=== PATIENT | male | born 1995 | race Caucasian/White ===

== ENCOUNTER 2016-11-02 15:22 | Inpatient (IN) | payer BC ==
[2016-11-02 16:32] LABS: Benzodiazepine Urine Screen None Detected (None Detect)
[2016-11-02 16:58] LABS: Hematocrit 44 % (42-52); Hemoglobin 14.6 g/dl (14.0-18.0); Mean Corpuscular HGB Conc 34 g/dl (31-36); Mean Corpuscular Hemoglobin 31 pg (27-31); Mean Corpuscular Volume 92 fL (80-94); Mean Platelet Volume 9 um3 (7.4-10.4); Red Blood Count 4.76 10^6/ul (4.0-5.4); Red Cell Distribution Width 14 % (10.5-15); White Blood Count 4.8 10^3/ul (3.5-10.8)
[2016-11-02 17:09] LABS: ALT 9 U/L (7-52); AST 22 U/L (13-39); Albumin 4.7 g/dL (3.2-5.2); Alkaline Phosphatase 77 U/L (34-104); Anion Gap 6 mmol/L (2-11); BUN/Creatinine Ratio 10.4 (8-20); Blood Urea Nitrogen 11 mg/dL (6-24); CO2 Carbon Dioxide 28 mmol/L (22-32); Calcium 9.7 mg/dL (8.6-10.3); Chloride 103 mmol/L (101-111); EGFR African American 114.5 (>60); EGFR Non-African American 89.1 (>60); Globulin 2.7 g/dL (2-4); Glucose 100 mg/dL (70-100); Potassium 3.9 mmol/L (3.5-5.0); Sodium 137 mmol/L (133-145); Total Protein 7.4 g/dL (6.4-8.9)
[2016-11-02 17:13] LABS: Acetaminophen < 15 mcg/mL; Alcohol < 10 mg/dL (<10); Salicylate < 2.50 mg/dL (<30)
[2016-11-02 17:23] LABS: TSH (Thyroid Stimulating Horm) 1.44 mcIU/mL (0.34-5.60)
--- NOTE | 2016-11-03 07:45 | ED ---
Spring Eaton Alfonso, scribed for Jose Coats MD on 11/02/16 at 1559 . Psychiatric Complaint - HPI Summary HPI Summary: This patient is a 21 year old M brought in by police to [facility] with a chief complaint of depression since one week ago. He states I wasnt feeling it anymore and he was set off today because of people at school. The patient rates the pain 0/10 in severity. Symptoms aggravated by nothing. Symptoms alleviated by nothing. Patient reports self-harm (burning and cutting himself), SI with a plan (everyday but I cannot tell you the plan.), insomnia (4 hours of sleep a night), loss of appetite, and weight loss (15 lb). He has a history of suicide attempts involving a hanging attempt, overdosing, and trying to jump off a building. Marijuana abuse. PMHx includes depression (7 years). - History Of Current Complaint Chief Complaint: EDMentalHealth Time Seen by Provider: 11/02/16 15:45 Hx Obtained From: Patient Onset/Duration: Sudden Onset, Lasting Weeks - 1, Still Present Timing: Constant Character: Depressed Aggravating Factor(s): Nothing Alleviating Factor(s): Nothing Associated Signs And Symptoms: Positive: Sleep Disturbance, Appetite Change Related History: Positive For: Prior Psychiatric Issues - depression Has Suicidal: Reports: Thoughts, With A Plan, Has Prior Attempt(s) Ingestion History: Type/Name Of Drug - Marijuana - Allergies/Home Medications Allergies/Adverse Reactions: Allergies Allergy/AdvReac Type Severity Reaction Status Date / Time No Known Allergies Allergy Verified 11/02/16 15:42 PMH/Surg Hx/FS Hx/Imm Hx Opthamlomology History: Denies: Hx Legally Blind EENT History: Denies: Hx Deafness Psychiatric History: Reports: Hx Depression Infectious Disease History: No Infectious Disease History: Denies: Traveled Outside the [place] in Last 30 Days - Family History Known Family History: Positive: Other - SI, depression Negative: Cardiac Disease, Hypertension, Diabetes - Social History Occupation: Student Alcohol Use: Rare Hx Substance Use: Yes Substance Use Type: Reports: Marijuana Hx Tobacco Use: Yes Smoking Status (MU): Light Every Day Tobacco Smoker Review of Systems Negative: Fever Positive: Other - loss of appetite, and weight loss (15 lb). Neurological: Other - SI with a plan, self harm, insomnia Positive: Depressed All Other Systems Reviewed And Are Negative: Yes Physical Exam - Summary Physical Exam Summary: VITAL SIGNS: Reviewed. GENERAL: Patient is a well-developed and nourished male who is lying comfortable in the stretcher. Patient is not in any acute respiratory distress. HEAD AND FACE: No signs of trauma. No ecchymosis, hematomas or skull depressions. No sinus tenderness. EYES: PERRLA, EOMI x 2, No injected conjunctiva, no nystagmus. EARS: Hearing grossly intact. Ear canals and tympanic membranes are within normal limits. MOUTH: Oropharynx within normal limits. NECK: Supple, trachea is midline, no adenopathy, no JVD, no carotid bruit, no c- spine tenderness, neck with full ROM. CHEST: Symmetric, no tenderness at palpation LUNGS: Clear to auscultation bilaterally. No wheezing or crackles. CVS: Regular rate and rhythm, S1 and S2 present, no murmurs or gallops appreciated. ABDOMEN: Soft, non-tender. No signs of distention. No rebound no guarding, and no masses palpated. Bowel sounds are normal. EXTREMITIES: FROM in all major joints, no edema, no cyanosis or clubbing. NEURO: Alert and oriented x 3. No acute neurological deficits. Speech is normal and follows commands. SKIN: Dry and warm PSYCH: Flat affect. Sad. Triage Information Reviewed: Yes Vital Signs On Initial Exam: Initial Vitals Temp Pulse Resp BP Pulse Ox 99.1 F 66 16 131/80 99 11/02/16 15:36 11/02/16 15:36 11/02/16 15:36 11/02/16 15:36 11/02/16 15:36 Vital Signs Reviewed: Yes Diagnostics - Vital Signs Vital Signs Temp Pulse Resp BP Pulse Ox 11/02/16 15:36 99.1 F 66 16 131/80 99 - Laboratory Result Diagrams: 11/02/16 16:28 11/02/16 16:28 Lab Statement: Any lab studies that have been ordered have been reviewed, and results considered in the medical decision making process. Course/Dx - Course Assessment/Plan: This patient is a 21 year old M brought in by police to [facility] with a chief complaint of depression since one week ago. He states I wasnt feeling it anymore and he was set off today because of people at school. The patient rates the pain 0/10 in severity. Symptoms aggravated by nothing. Symptoms alleviated by nothing. Patient reports self-harm (burning and cutting himself), SI with a plan (everyday but I cannot tell you the plan.), insomnia (4 hours of sleep a night), loss of appetite, and weight loss (15 lb). He has a history of suicide attempts involving a hanging attempt, overdosing, and trying to jump off a building. Marijuana abuse. PMHx includes depression (7 years). Test results with no significant abnormalities. Therefore, the patient is medically cleared at 1628. He is currently awaiting his MHE. Patient is signed out at shift change, pending disposition, awaiting MHE. The patient is hemodynamically stable, alert and oriented x3. - Differential Dx/Clinical Impression Provider Diagnosis: Depression, Suicidal ideation Discharge - Discharge Plan Condition: Stable Disposition: OTHER Discharge Disposition Comment: Patient is signed out at shift change, pending disposition, awaiting MHE. Referrals: [facility] [Primary Care Provider] - The documentation as recorded by the Spring luna Alfonso accurately reflects the service I personally performed and the decisions made by me, Jose Coats MD.
[2016-11-03] MEDS ORDERED: LORazepam TAB(*) 1 MG PO ONE (10:57)
[2016-11-03] MEDS ORDERED: Nicotine Inhaler* 10 MG AMP ONE (11:50)
[2016-11-03] MEDS ORDERED: Mouth Piece, Nicotine* 1 EACH CARTRIDGE ONE ×2 (11:50→18:47)
--- NOTE | 2016-11-03 12:48 | PN ---
ED Flex Patient Progress Note Subjective: This is a 21 year-old M who is pending transfer to another psychiatric facility secondary to active SI w/ plans . Pt offers no complaints at this time. Objective: Vitals: Most recent vital signs documented below. General NAD, Alert and oriented x3. Heart: S1/S2, RRR Lungs: CTA Ab: soft, NTTP Assessment: SI w/ plan Plan: Ativan ordered earlier for pt as he was physical agitated and actively pursuing ways to harm himself. Reports feeling "floaty" since - otherwise, same. He has a 1:1 and appears and reports being comfortable at this time. Pending psychiatric transfer. Will follow up daily until transfer. Vital Signs Temp Pulse Resp BP Pulse Ox 99.1 F 66 22 131/80 99 11/02/16 15:36 11/02/16 15:36 11/03/16 11:01 11/02/16 15:36 11/02/16 15:36 Lab Results - Entire Visit 11/02/16 11/02/16 11/02/16 16:28 16:28 16:10 WBC 4.8 RBC 4.76 Hgb 14.6 Hct 44 MCV 92 MCH 31 MCHC 34 RDW 14 Plt Count 240 MPV 9 Neut % (Auto) 70.4 Lymph % (Auto) 22.6 L Ogle % (Auto) 5.6 Eos % (Auto) 0.8 Baso % (Auto) 0.6 Absolute Neuts (auto) 3.4 Absolute Lymphs (auto) 1.1 Absolute Monos (auto) 0.3 Absolute Eos (auto) 0 Absolute Basos (auto) 0 Absolute Nucleated RBC 0 Nucleated RBC % 0 Sodium 137 Potassium 3.9 Chloride 103 Carbon Dioxide 28 Anion Gap 6 BUN 11 Creatinine 1.06 Est GFR ( Amer) 114.5 Est GFR (Non-Af Amer) 89.1 BUN/Creatinine Ratio 10.4 Glucose 100 Calcium 9.7 Total Bilirubin 0.80 AST 22 ALT 9 Alkaline Phosphatase 77 Total Protein 7.4 Albumin 4.7 Globulin 2.7 Albumin/Globulin Ratio 1.7 TSH 1.44 Salicylates < 2.50 Urine Opiates Screen None detected Acetaminophen < 15 Ur Barbiturates Screen None detected Ur Phencyclidine Scrn None detected Ur Amphetamines Screen Presumptive positive H U Benzodiazepines Scrn None detected Urine Cocaine Screen None detected U Cannabinoids Screen Presumptive positive H Serum Alcohol < 10
[2016-11-03] MEDS ORDERED: Acetaminophen TAB* 325 MG PO PRN (15:47)
[2016-11-03] MEDS ORDERED: Nicotine GUM* 2 MG PO PRN (15:47)
[2016-11-03] MEDS ORDERED: Al Hydrox/Mg Hydrox/Simet LIQ* 30 ML UDC PO PRN (15:47)
[2016-11-03] MEDS ORDERED: Haloperidol TAB* 5 MG PO PRN (15:48)
[2016-11-03] MEDS ORDERED: hydrOXYzine HCL TAB* 50 MG PO PRN (15:49)
[2016-11-03] MEDS: Nicotine Inhaler* 10 MG AMP INH PRN (18:48)
[2016-11-04] MEDS: Citalopram TAB* 40 MG PO SCH ×2 (11:07→11:08)
--- NOTE | 2016-11-04 12:24 | HP ---
H&P (Free Text) History and Physical: HPI: ---- Patient is a 21yo male with PPHx significant for MDD adnd ADHD. Patient presents to the [facility] ED, brought in by police for psych eval after patient called his therapist back home in [place] reporting worsening depression and SI. Patient attempted to hang himself twice since presentation. He attempted in the ED and on the unit last night. Patient reports worsening depressive symptoms and anxiety since starting at [facility]. Patient has transferred from [place] where he did two years at a [employer]. Patientn reports stress of not knowing anyone and recently feeling like his peers are saying things about him behind his back. Patient reports he has not heard anyone speak negatively of him but he feels he is being accused of being a racist and being sexist. Patient reports his family and other supports are in [place] where he was raised. Patient reports poor sleep, decreased energy and motivation to do well in classes. Patient reports feelings of hopelessness and helplessness. Patient reports no hx of physical, sexual or emotional abuse in his home. He does report being bullied for much of his HS years. Patient denies alcohol or drugs played a role in his depression or SI. He reports last seeing his psychiatrist and therapist in 2016. He reports he has not sought MH here in [place] yet. Patient currently endorses ongoing SI. He denies HI and AH/VH. He reports no symptoms of psychosis nor were any elicited on interview. Past Psych Hx: Inpt - This is patient's 1st Outpt - Last seen by psychiatrist in [place] Psychotropic med hx - Ritalin, Adderral, Bupropion, Celexa, and Trintellix all with little benefit. Suicide attempt Hx / SIB Hx: Patient reports 3 prior suicide attempts, his last in 01/2017 Trauma Hx: Patient denies hx of physical, emotional, and sexual abuse in his home. Patient does report being bullied throughout elementary and HS. Substance Hx: Patient denies hx of alcohol abuse. Patient reports daily use of cannabis, he smokes about a bowl per day. He smokes only in the evenings. Patient denies hx of use of other illicit substances. Medical Hx: NONE Allergies: --------- NKDA Family Hx: Patient reports depression in both sides of the family. He is not aware of any family with THERESA issues. Patient reports he has no knowledge of any family members completing suicide. Social Hx: --------- -Born and raised in [place] -Raised by mom and dad -1 sibling and older brother, they are not close -Patient reports completing 2 yrs at a [employer] in [place] prior to his transfer to [facility]. -Patient denies firearms in his dorm -Patient denies access to firearms at home -Patient reports he does have stockpiles of old Rx pills in his dorm room PHYSICAL EXAM: GEN - in NAD, looks stated age HEENT - NC/AT, EOEMI, no lesions or discharge noted, conjunctivae clear NECK - supple, no JVD, no LAD, CARDIAC - S1/S2, no discernable murmurs ABD - (+) BS x 4 quad, non-tender EXT - no edema, no lesions MUSCULOSKEL - 5/5 muscle strength in all extremities SKIN - intact, no lesions NEURO - CN 2-12, steady gait LABS: ----- Laboratory Tests 11/02/16 11/02/16 11/02/16 16:10 16:28 16:28 WBC 4.8 RBC 4.76 Hgb 14.6 Hct 44 MCV 92 MCH 31 MCHC 34 RDW 14 Plt Count 240 MPV 9 Neut % (Auto) 70.4 Lymph % (Auto) 22.6 L [place] % (Auto) 5.6 Eos % (Auto) 0.8 Baso % (Auto) 0.6 Absolute Neuts (auto) 3.4 Absolute Lymphs (auto) 1.1 Absolute Monos (auto) 0.3 Absolute Eos (auto) 0 Absolute Basos (auto) 0 Absolute Nucleated RBC 0 Nucleated RBC % 0 Sodium 137 Potassium 3.9 Chloride 103 Carbon Dioxide 28 Anion Gap 6 BUN 11 Creatinine 1.06 Est GFR ( Amer) 114.5 Est GFR (Non-Af Amer) 89.1 BUN/Creatinine Ratio 10.4 Glucose 100 Calcium 9.7 Total Bilirubin 0.80 AST 22 ALT 9 Alkaline Phosphatase 77 Total Protein 7.4 Albumin 4.7 Globulin 2.7 Albumin/Globulin Ratio 1.7 TSH 1.44 Salicylates < 2.50 Urine Opiates Screen None detected Acetaminophen < 15 Ur Barbiturates Screen None detected Ur Phencyclidine Scrn None detected Ur Amphetamines Screen Presumptive positive H U Benzodiazepines Scrn None detected Urine Cocaine Screen None detected U Cannabinoids Screen Presumptive positive H Serum Alcohol < 10 MSE: ----- Appearance - thin build, male, in paper scrubs, on 1:1, fair hygeine, in NAD Behavior - calm, cooperative Speech - RVR, prosody wnl Eye Contact - good Mood - "depressed" Affect - depressed TP - linear and GD TC - thought of hopelessness Perception - no signs of psychosis noted or reported Orientation - A&Ox3 Cognition - intact Insight - poor Judgement - poor SI / HI SI present on admission, currently denies both ASSESSMENT: 1. MDD, R, S w/o PFs 2. Social Anxiety d/o 3. ADHD PLAN: ------ 1. Continue admission to [facility] for safety and symptom mx. 2. Will D/C Celexa due to patient reported hx of it's ineffectiveness. 3. Will start Effexor 150mg po daily for depressive symptoms and anxiety. 4. Collateral information from family and outpt providers. 5. Patient to participate in milieu activities and groups.
[2016-11-04] MEDS: Nicotine Inhaler* 10 MG AMP INH PRN ×2 (13:08→20:41)
[2016-11-05] MEDS: Venlafaxine EXT RELEASE CAP* 75 MG PO SCH (08:28)
[2016-11-05] MEDS: Nicotine Inhaler* 10 MG AMP INH PRN ×2 (08:30→18:08)
--- NOTE | 2016-11-05 13:42 | PN ---
Subjective - Subjective Service Type: 29352 Hosp care 15 min low complexity Subjective: Patient visible in the milieu, social with select peers. Patient noted to be up exercising in the milieu today. On interview, patient is noted to be more engaged in the conversation. Eye contact is good today. TP is linear and TC is his re-commitment to prioritizing his MH care. Patient educated on the importance of med compliance as he has a genetic predisposition to become anxious and paranoid when extremely stressed. Patient acknowledged understanding. Patient has been med compliant and denies med s/e's. Patient amenable to restart of Abilify for paranoia and mood stabilization as he has seen benefit on the symptoms from Abilify trial in the past. Patient denies SI/HI and AH/VH. He denies paranoia on the unit. He reports fair sleep and appetite. Objective - Appearance Appearance: Well Developed/Nourished Dysmorphic Features: No Hygiene: Normal Grooming: Well Kept - Behavior Psychomotor Activities: Normal - Attitude and Relatedness Attitude and Relatedness: Cooperative Eye Contact: Fair - Speech Quality: Unpressured Latencies: Normal Quantity: Appropriate - Mood Patient's Decription of Mood: depressed - Affect Observed Affect: Depressed Affect Consistent with: Dysphoria - Thought Process Patient's Thought Process: Coherent Thought Content: Yes Paranoid Ideation, No Passive Wish, No Suicidal Planning, No Homicidal Ideation - Sensorium Experiencing Hallucinations: No, Sensorium is Clear Type of Hallucinations: Visual: No, Auditory: No, Command: No - Level of Consciousness Level of Consciousness: Alert Orientation: Yes Intact, Yes Orientated to Time, Yes Orientated to Place, Yes Orientated to Person - Impulse Control Impulse Control: Intact - Insight and Judgement Insight and Judgement: Fair - Group Participation Particating in Group Activities: Yes - Medication Management Medication Management Adherence: Yes Assessment - Assessment Merits Inpatient Hospitalization: For Immediate Safety, For Stabilization Inpatient DSM-IV Dx: ASSESSMENT: . 1. MDD, R, S w/ PFs(paranoia ) vs Bipolar depression w/PFs(paranoia). 2. ADHD Plan - Plan Treatment Plan: Name: KELLI HENRY Birthdate: 1995 [id number] PLAN: ------ 1. Continue admission to [facility] for safety and symptom mx. 2. Will D/C Celexa due to patient reported hx of it's ineffectiveness. 3. Continue Effexor 150mg po daily for depressive symptoms and anxiety. 4. Collateral information obtained from patient's psychiatrist,Dr. Ruddy Sheldon#[phone], patient has hx of paranoia. He has family hx of Bipolar 2 depression and his paternal GF committed suicide. 5. Will re-start Abilify at 10mg po qhs for PFs(paranoia) and mood stabilization / impulsivity. Plan to initiate Abilify Maintena prior to discharge. 6. Obtain collateral information from family(mom). 7. Patient to participate in milieu activities and groups. Medications: Current Medications Acetaminophen (Tylenol Tab*) 650 mg PO Q4H PRN PRN Reason: for pain; or Temp >101 F Al Hydrox/Mg Hydrox/Simethicone (Maalox Plus*) 30 ml PO Q4H PRN PRN Reason: INDIGESTION Haloperidol (Haldol Tab*) 5 mg PO Q6H PRN PRN Reason: AGITATION/ANXIETY/INSOMNIA Hydroxyzine HCl (Atarax Tab*) 50 mg PO Q6H PRN PRN Reason: AGITATION/ANXIETY/INSOMNIA Nicotine (Nicotine Inhaler*) 10 mg INH Q2H PRN PRN Reason: CRAVING Last Admin: 11/05/16 08:30 Dose: 10 mg Nicotine Polacrilex (Nicotine Gum*) 2 mg PO Q2H PRN PRN Reason: CRAVING Venlafaxine HCl (Effexor Xr Cap*) 150 mg PO DAILY [facility] Last Admin: 11/05/16 08:28 Dose: 150 mg - Discharge Plan Discharge Plan: Outpatient Follow Up Outpatient Program: [facility]
[2016-11-05] MEDS: ARIPiprazole TAB* 5 MG PO SCH (20:34)
[2016-11-06] MEDS: Venlafaxine EXT RELEASE CAP* 75 MG PO SCH (08:03)
--- NOTE | 2016-11-06 10:11 | PN ---
Subjective - Subjective Service Type: 38580 Hosp care 15 min low complexity Subjective: Patient visible in the milieu, social with peers. He was playing cards with multiple peers on my approach. Patient is more full in affect and even more engaged today in conversation. He reports no noticeable s/e's on last night's first dose of Abilify. Patient TP is linear and TC is focused on returning to school this semester. He reports his mother is on the way from [place]. Patient has been med compliant and denies med s/e's. Patient reporting improved mood. Patient denies SI/HI and AH/VH. He denies paranoia on the unit. He reports fair sleep and appetite. Objective - Appearance Appearance: Well Developed/Nourished Dysmorphic Features: No Hygiene: Normal Grooming: Fairly Well Kept - Behavior Psychomotor Activities: Normal Exhibits Abnormal Movement: No - Attitude and Relatedness Attitude and Relatedness: Cooperative Eye Contact: Fair - Speech Quality: Unpressured Latencies: Normal Quantity: Appropriate - Mood Patient's Decription of Mood: "Okay" - Affect Observed Affect: Fair Affect Consistent with: Euthymia - Thought Process Patient's Thought Process: Coherent Thought Content: No Passive Wish, No Suicidal Planning, No Homicidal Ideation, No Paranoid Ideation - Sensorium Experiencing Hallucinations: No, Sensorium is Clear Type of Hallucinations: Visual: No, Auditory: No, Command: No - Level of Consciousness Level of Consciousness: Alert Orientation: Yes Intact, Yes Orientated to Time, Yes Orientated to Place, Yes Orientated to Person - Impulse Control Impulse Control: Intact - Insight and Judgement Insight and Judgement: Fair - Group Participation Particating in Group Activities: Yes - Medication Management Medication Management Adherence: Yes Assessment - Assessment Merits Inpatient Hospitalization: For Immediate Safety, For Stabilization Inpatient DSM-IV Dx: ASSESSMENT: . 1. MDD, R, S w/ PFs(paranoia ) vs Bipolar depression w/PFs(paranoia). 2. ADHD Plan - Plan Treatment Plan: Name: KELLI HENRY Birthdate: 1995 [id number] PLAN: ------ 1. Continue admission to [facility] for safety and symptom mx. 2. Will D/C Celexa due to patient reported hx of it's ineffectiveness. 3. Continue Effexor 150mg po daily for depressive symptoms and anxiety. 4. Collateral information obtained from patient's psychiatrist,Dr. Ruddy Sheldon#[phone], patient has hx of paranoia. He has family hx of Bipolar 2 depression and his paternal GF committed suicide. 5. Will re-start Abilify at 10mg po qhs for PFs(paranoia) and mood stabilization / impulsivity. Plan to initiate Abilify Maintena prior to discharge. 6. Obtain collateral information from family(mom). 7. Patient to participate in milieu activities and groups. Medications: Current Medications Acetaminophen (Tylenol Tab*) 650 mg PO Q4H PRN PRN Reason: for pain; or Temp >101 F Al Hydrox/Mg Hydrox/Simethicone (Maalox Plus*) 30 ml PO Q4H PRN PRN Reason: INDIGESTION Aripiprazole (Abilify Tab*) 10 mg PO BEDTIME [facility] Last Admin: 11/05/16 20:34 Dose: 10 mg Haloperidol (Haldol Tab*) 5 mg PO Q6H PRN PRN Reason: AGITATION/ANXIETY/INSOMNIA Hydroxyzine HCl (Atarax Tab*) 50 mg PO Q6H PRN PRN Reason: AGITATION/ANXIETY/INSOMNIA Nicotine (Nicotine Inhaler*) 10 mg INH Q2H PRN PRN Reason: CRAVING Last Admin: 11/05/16 18:08 Dose: 10 mg Nicotine Polacrilex (Nicotine Gum*) 2 mg PO Q2H PRN PRN Reason: CRAVING Venlafaxine HCl (Effexor Xr Cap*) 150 mg PO DAILY [facility] Last Admin: 11/06/16 08:03 Dose: 150 mg
[2016-11-06] MEDS: Nicotine Inhaler* 10 MG AMP INH PRN ×2 (15:23→20:51)
[2016-11-06] MEDS: ARIPiprazole TAB* 5 MG PO SCH (20:17)
[2016-11-07] MEDS: Venlafaxine EXT RELEASE CAP* 75 MG PO SCH (08:26)
--- NOTE | 2016-11-07 13:19 | PN ---
Subjective - Subjective Service Type: 63650 Hosp care 15 min low complexity Subjective: Patient visible in the milieu, social with peers. He was noted to be more depressed in affect and manner today. Patient is med compliant. He reports new constipation x 2 days. He denies other med s/e's. Patient reports concern he is missing course work and concern that he will be hospitalized for months. Mother is on the way from [place]. Per conversation with mother. Patient will likely be asked to take a semester medical leave. She is coming to be with him if IC administration makes that decision. Patient denies SI/HI and AH/VH. He denies paranoia on the unit. He is amenable to start of Colace and increase in Abilify dose. He reports fair sleep and appetite. Objective - Appearance Appearance: Well Developed/Nourished Dysmorphic Features: No Hygiene: Normal Grooming: Fairly Well Kept - Behavior Psychomotor Activities: Normal Exhibits Abnormal Movement: No - Attitude and Relatedness Attitude and Relatedness: Cooperative Eye Contact: Fair - Speech Quality: Unpressured Latencies: Normal Quantity: Terse - Mood Patient's Decription of Mood: "Anxious" - Affect Observed Affect: Depressed Affect Consistent with: Dysphoria - Thought Process Patient's Thought Process: Coherent Thought Content: No Passive Wish, No Suicidal Planning, No Homicidal Ideation, No Paranoid Ideation - Sensorium Experiencing Hallucinations: No, Sensorium is Clear Type of Hallucinations: Visual: No, Auditory: No, Command: No - Level of Consciousness Level of Consciousness: Alert Orientation: Yes Intact, Yes Orientated to Time, Yes Orientated to Place, Yes Orientated to Person - Impulse Control Impulse Control: Intact - Insight and Judgement Insight and Judgement: Fair - Group Participation Particating in Group Activities: Yes - Medication Management Medication Management Adherence: Yes Assessment - Assessment Merits Inpatient Hospitalization: For Immediate Safety, For Stabilization Inpatient DSM-IV Dx: ASSESSMENT: . 1. MDD, R, S w/ PFs(paranoia ) vs Bipolar depression w/PFs(paranoia). 2. ADHD Plan - Plan Treatment Plan: Name: KELLI HENRY Birthdate: 1995 [id number] PLAN: ------ 1. Continue admission to [facility] for safety and symptom mx. 2. Will D/C Celexa due to patient reported hx of it's ineffectiveness. 3. Increase Effexor from 150mg to 225mg po daily for depressive symptoms and anxiety. 4. Collateral information obtained from patient's psychiatrist,Dr. Ruddy Sheldon#[phone], patient has hx of paranoia. He has family hx of Bipolar 2 depression and his paternal GF committed suicide. 5. Increase Abilify from 10mg to 20mg po qhs for PFs(paranoia) and mood stabilization / impulsivity. Plan to initiate Abilify Maintena prior to discharge. 6. Collateral information obtained from mom. 7. Patient to participate in milieu activities and groups. Medications: Current Medications Acetaminophen (Tylenol Tab*) 650 mg PO Q4H PRN PRN Reason: for pain; or Temp >101 F Al Hydrox/Mg Hydrox/Simethicone (Maalox Plus*) 30 ml PO Q4H PRN PRN Reason: INDIGESTION Aripiprazole (Abilify Tab*) 10 mg PO BEDTIME [facility] Last Admin: 11/06/16 20:17 Dose: 10 mg Haloperidol (Haldol Tab*) 5 mg PO Q6H PRN PRN Reason: AGITATION/ANXIETY/INSOMNIA Hydroxyzine HCl (Atarax Tab*) 50 mg PO Q6H PRN PRN Reason: AGITATION/ANXIETY/INSOMNIA Nicotine (Nicotine Inhaler*) 10 mg INH Q2H PRN PRN Reason: CRAVING Last Admin: 11/06/16 20:51 Dose: 10 mg Nicotine Polacrilex (Nicotine Gum*) 2 mg PO Q2H PRN PRN Reason: CRAVING Venlafaxine HCl (Effexor Xr Cap*) 150 mg PO DAILY [facility] Last Admin: 11/07/16 08:26 Dose: 150 mg
[2016-11-07] MEDS: Nicotine Inhaler* 10 MG AMP INH PRN (15:18)
[2016-11-07] MEDS: ARIPiprazole TAB* 20 MG PO SCH (20:00)
[2016-11-08] MEDS: Venlafaxine EXT RELEASE CAP* 75 MG PO SCH (08:25)
[2016-11-08] MEDS: Nicotine Inhaler* 10 MG AMP INH PRN ×2 (10:46→18:12)
[2016-11-08] MEDS ORDERED: Docusate CAP* 100 MG PO ONE (11:33)
[2016-11-08] MEDS: ARIPiprazole TAB* 20 MG PO SCH (20:23)
[2016-11-09] MEDS: Docusate CAP* 100 MG PO SCH (08:30)
[2016-11-09] MEDS: Venlafaxine EXT RELEASE CAP* 75 MG PO SCH (08:30)
[2016-11-09] MEDS: Nicotine Inhaler* 10 MG AMP INH PRN ×2 (11:53→16:31)
--- NOTE | 2016-11-09 16:57 | PN ---
Subjective - Subjective Service Type: 36761 Hosp care 15 min low complexity Subjective: Kelli says he hasn't thought about suicide since last Mon. and actually doing well. Still constipated and taking stool softner. Answers questions without making eye contacts. Objective - Appearance Appearance: Healthy Appearing Dysmorphic Features: No Hygiene: Normal Grooming: Well Kept - Behavior Psychomotor Activities: Normal Exhibits Abnormal Movement: No - Attitude and Relatedness Attitude and Relatedness: Cooperative Eye Contact: Poor - Speech Quality: Unpressured Latencies: Normal Quantity: Appropriate - Mood Patient's Decription of Mood: "Good" - Affect Observed Affect: Non-labile Affect Consistent with: Dysphoria - Thought Process Patient's Thought Process: Coherent, Circumstantial Thought Content: No Passive Wish, No Suicidal Planning, No Homicidal Ideation, No Paranoid Ideation - Sensorium Experiencing Hallucinations: No, Sensorium is Clear Type of Hallucinations: Visual: No, Auditory: No, Command: No - Level of Consciousness Orientation: Yes Intact, Yes Orientated to Time, Yes Orientated to Place, Yes Orientated to Person - Impulse Control Impulse Control: Tenuous - Insight and Judgement Insight and Judgement: Poor - Group Participation Particating in Group Activities: No - Medication Management Medication Management Adherence: Yes Assessment - Assessment Merits Inpatient Hospitalization: For Stabilization, Pending Safe DC Plan Inpatient DSM-IV Dx: ASSESSMENT: . 1. MDD, R, S w/ PFs(paranoia ) vs Bipolar depression w/PFs(paranoia). 2. ADHD Clinical Impression: Still symptomatic, impulsive and unreliable in reporting. Not safe for discharge. Plan - Plan Treatment Plan: Name: KELLI HENRY Birthdate: 1995 [id number] Continued Medication Management: Continue Outpt Medication Medications: Current Medications Acetaminophen (Tylenol Tab*) 650 mg PO Q4H PRN PRN Reason: for pain; or Temp >101 F Al Hydrox/Mg Hydrox/Simethicone (Maalox Plus*) 30 ml PO Q4H PRN PRN Reason: INDIGESTION Aripiprazole (Abilify Tab*) 20 mg PO BEDTIME [facility] Last Admin: 11/08/16 20:23 Dose: 20 mg Docusate Sodium (Colace Cap*) 100 mg PO DAILY [facility] Last Admin: 11/09/16 08:30 Dose: 100 mg Haloperidol (Haldol Tab*) 5 mg PO Q6H PRN PRN Reason: AGITATION/ANXIETY/INSOMNIA Hydroxyzine HCl (Atarax Tab*) 50 mg PO Q6H PRN PRN Reason: AGITATION/ANXIETY/INSOMNIA Nicotine (Nicotine Inhaler*) 10 mg INH Q2H PRN PRN Reason: CRAVING Last Admin: 11/09/16 16:31 Dose: 10 mg Nicotine Polacrilex (Nicotine Gum*) 2 mg PO Q2H PRN PRN Reason: CRAVING Venlafaxine HCl (Effexor Xr Cap*) 225 mg PO DAILY [facility] Last Admin: 11/09/16 08:30 Dose: 225 mg - Discharge Plan Discharge Plan: Outpatient Follow Up Outpatient Program: [facility]
[2016-11-09] MEDS: ARIPiprazole TAB* 20 MG PO SCH (20:02)
[2016-11-09] MEDS ORDERED: Benztropine TAB* 1 MG PO ONE (21:18)
[2016-11-10] MEDS: Venlafaxine EXT RELEASE CAP* 75 MG PO SCH (08:10)
[2016-11-10] MEDS: Benztropine TAB* 1 MG PO SCH ×2 (08:10→20:13)
[2016-11-10] MEDS: Docusate CAP* 100 MG PO SCH (08:10)
[2016-11-10] MEDS: Nicotine Inhaler* 10 MG AMP INH PRN ×2 (10:41→18:21)
[2016-11-10] MEDS ORDERED: Magnesium CITRATE* 300 ML BTL PO ONE (14:00)
--- NOTE | 2016-11-10 14:03 | PN ---
Subjective - Subjective Service Type: 82689 Hosp care 35 min high complexity Subjective: Family meeting today with patient, patient's mother, this provider and unit SW this afternoon. Patient noted to be engaged in the meeting, with full affect and spontaneous speech. Patient has decided it best to take this semester off to prioritize his MH treatment. Patient is amenable to returning home with his mom after discharge. He is amenable to starting a Partial hospitalization treatment program, as well as returning to his prior MH provider(Dr. Sheldon) and therapist in [place]. Patient reports improved mood since admission. He reports no further muscle rigidity or stiffness since initiation of Cogentin 1mg po BID. Patient reports ongoing constipation which has not been alleviated by Colace 100mg po daily. Patient amenable to 1x MagCitrate for constipation. Mom reports she'd like to talk with Dr. Sheldon in regard to his Adderall Rx and in regard to initiating the BENAVIDES Abilify Maintena. Patient reports fair sleep and appetite. He again denies SI/ HI and AH/VH. He reports feeling ready for discharge. Tentative discharge scheduled for 11am tomorrow. Objective - Appearance Appearance: Well Developed/Nourished Dysmorphic Features: No Hygiene: Normal Grooming: Well Kept - Behavior Psychomotor Activities: Normal Exhibits Abnormal Movement: No - Attitude and Relatedness Attitude and Relatedness: Cooperative Eye Contact: Good - Speech Quality: Unpressured Latencies: Normal Quantity: Appropriate - Mood Patient's Decription of Mood: "Okay" - Affect Observed Affect: Fair Affect Consistent with: Euthymia - Thought Process Patient's Thought Process: Coherent Thought Content: No Passive Wish, No Suicidal Planning, No Homicidal Ideation, No Paranoid Ideation - Sensorium Experiencing Hallucinations: No, Sensorium is Clear Type of Hallucinations: Visual: No, Auditory: No, Command: No - Level of Consciousness Level of Consciousness: Alert Orientation: Yes Intact, Yes Orientated to Time, Yes Orientated to Place, Yes Orientated to Person - Impulse Control Impulse Control: Intact - Insight and Judgement Insight and Judgement: Fair - Group Participation Particating in Group Activities: Yes - Medication Management Medication Management Adherence: Yes Assessment - Assessment Merits Inpatient Hospitalization: For Immediate Safety, For Stabilization Inpatient DSM-IV Dx: ASSESSMENT: . 1. MDD, R, S w/ PFs(paranoia ) vs Bipolar depression w/PFs(paranoia). 2. ADHD Plan - Plan Treatment Plan: Name: KELLI HENRY Birthdate: 1995 [id number] PLAN: ------ 1. Continue admission to [facility] for safety and symptom mx. 2. Will D/C Celexa due to patient reported hx of it's ineffectiveness. 3. Family meeting with mom, patient, this provider, and unit SW completed today , 11/10/16. 4. Continue Effexor 225mg po daily for depressive symptoms and anxiety. 5. Continue Abilify 20mg po qhs for PFs(paranoia) and mood stabilization / impulsivity. Patient 's mom would like to discuss initiation of BENAVIDES Abilify Maintena with patient's psychiatrist(Dr. Sheldon). Will discharge on po Abilify. 6. Collateral information obtained from patient's psychiatrist,Dr. Ruddy Sheldon#[phone], patient has hx of paranoia. He has family hx of Bipolar 2 depression and his paternal GF committed suicide. 7. Collateral information obtained from mom. 8. Continue Cogentin 1mg po BID for eps. Patient reports no further muscle rigidity or stiffness since initiation of this med. 9. Will start 1x MagCitrate for constipation. 10. Continue Colace 100mg po daily. 11. Discharge tentative for tomorrow 11/11/16. 12. Patient to participate in milieu activities and groups. Medications: Current Medications Acetaminophen (Tylenol Tab*) 650 mg PO Q4H PRN PRN Reason: for pain; or Temp >101 F Al Hydrox/Mg Hydrox/Simethicone (Maalox Plus*) 30 ml PO Q4H PRN PRN Reason: INDIGESTION Aripiprazole (Abilify Tab*) 20 mg PO BEDTIME [facility] Last Admin: 11/09/16 20:02 Dose: 20 mg Benztropine Mesylate (Cogentin Tab*) 1 mg PO BID [facility] Last Admin: 11/10/16 08:10 Dose: 1 mg Docusate Sodium (Colace Cap*) 100 mg PO DAILY [facility] Last Admin: 11/10/16 08:10 Dose: 100 mg Haloperidol (Haldol Tab*) 5 mg PO Q6H PRN PRN Reason: AGITATION/ANXIETY/INSOMNIA Hydroxyzine HCl (Atarax Tab*) 50 mg PO Q6H PRN PRN Reason: AGITATION/ANXIETY/INSOMNIA Nicotine (Nicotine Inhaler*) 10 mg INH Q2H PRN PRN Reason: CRAVING Last Admin: 11/10/16 10:41 Dose: 10 mg Nicotine Polacrilex (Nicotine Gum*) 2 mg PO Q2H PRN PRN Reason: CRAVING Venlafaxine HCl (Effexor Xr Cap*) 225 mg PO DAILY [facility] Last Admin: 11/10/16 08:10 Dose: 225 mg - Discharge Plan Discharge Plan: Outpatient Follow Up Outpatient Program: Private Clinician(s)
[2016-11-10] MEDS: ARIPiprazole TAB* 20 MG PO SCH (20:13)
[2016-11-11 07:49] VITALS: BP 130/70
[2016-11-11] MEDS: Benztropine TAB* 1 MG PO SCH (08:22)
[2016-11-11] MEDS: Docusate CAP* 100 MG PO SCH (08:22)
[2016-11-11] MEDS: Venlafaxine EXT RELEASE CAP* 75 MG PO SCH (08:22)
--- NOTE | 2016-11-11 10:30 | DS ---
Subjective - Subjective Service Types: [id number] Hosp DC Day Mgmt simple under 30 min Subjective: Patient again noted to be visible in the milieu, social with peers. He was playing cards with multiple peers on my approach. Patient is more full in affect and even more engaged today in conversation. Patient more logical in TP and noted to have full affect. Patient denied SI/HI and AH/VH. Patient is A&Ox4, linear and GD in TP, and future oriented in TC. Patient engaged in learning how to cope with his anxiety and inclination to perceive malice. Patient reports interest in getting back into school after his semester off. Patient is psychiatrically stable. Discharge plan has been discussed and patient is amenable and acknowledges understanding. Patient instructed to call the crisis hotline, 911, or self present to a local ED if SI recurs. Patient was amenable and acknowledged understanding of family and community supports. Patient will be discharge home with his mother who has come to pick him up. Objective - Appearance Appearance: Well Developed/Nourished Dysmorphic Features: No Hygiene: Normal Grooming: Well Kept - Behavior Psychomotor Activities: Normal Exhibits Abnormal Movement: No - Attitude and Relatedness Attitude and Relatedness: Cooperative Eye Contact: Fair - Speech Quality: Unpressured Latencies: Normal Quantity: Appropriate - Mood Patient's Decription of Mood: "Good" - Affect Observed Affect: Good Affect Consistent with: Euthymia - Thought Process Patient's Thought Process: Coherent Thought Content: No Passive Wish, No Suicidal Planning, No Homicidal Ideation, No Paranoid Ideation - Sensorium Experiencing Hallucinations: No, Sensorium is Clear Type of Hallucinations: Visual: No, Auditory: No, Command: No - Level of Consciousness Level of Consciousness: Alert Orientation: Yes Intact, Yes Orientated to Time, Yes Orientated to Place, Yes Orientated to Person - Impulse Control Impulse Control: Intact - Insight and Judgement Insight and Judgement: Fair - Group Participation Particating in Group Activities: Yes - Medication Management Medication Management Adherence: Yes Treatment Course & Assessment Clinical Course & Impression: HOSPITAL COURSE: Patient is a 21yo male with PPHx significant for MDD and ADHD. Patient presented to the [facility], brought in by police for psych eval after patient called his therapist back home in [place] reporting worsening depression and SI. Patient attempted to hang himself twice since presentation, once in the [facility] ED and once in the [facility]. . Patient reports worsening depressive symptoms and anxiety since starting at [facility]. 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 Patientn reports stress of not knowing anyone and recently feeling like his peers are saying things about him behind his back. Patient reports he has not heard anyone speak negatively of him but he feels he is being accused of being a racist and being sexist. Patient reports his family and other supports are in [place] where he was raised. Patient reports poor sleep, decreased energy and motivation to do well in classes. Patient reports feelings of hopelessness and helplessness. Patient reports no hx of physical, sexual or emotional abuse in his home. He does report being bullied for much of his HS years. Patient denies alcohol or drugs played a role in his depression or SI. He reports last seeing his psychiatrist and therapist in 2016. He reports he has not sought MH here in [place] yet. Patient currently endorses ongoing SI. He denied HI and AH/VH. He reports no symptoms of psychosis nor were any elicited on interview. On day of admission, home regimen Trintellix was D/C'd due to hx of it's ineffectiveness. Patient gave informed consent to start Effexor 150mg po daily for depressive symptoms and anxiety. Patient immediately showed interest in groups and participated well in discussion. Patient continued to express paranoid ideations and displayed poor schema. On admission day 2, patient visible in the milieu, social with peers. He was noted to have improved energy and interest, but patient ultimately was more depressed in affect and manner. Patient was med compliant. Patient reports concern he is missing course work and concern that he will be hospitalized for months. Mother is on the way from [place]. Per conversation with mother. Patient will likely be asked to take a semester medical leave. She is coming to be with him if IC administration makes that decision. Patient denies SI/HI and AH/VH. Collateral information obtained from patient's psychiatrist,Dr. Ruddy Sheldon#[phone] , patient has hx of paranoia. He has family hx of Bipolar 2 depression and his paternal GF committed suicide. Effexor was increased from 150mg to 225mg po daily for depressive symptoms and anxiety. At recommendation of his home psychiatrist Dr. Sheldon, Abilify was re-started and ultimately increased from 10mg to 20mg po qhs for PFs(paranoia) and mood stabilization / impulsivity. Patient on this regimen was noted to have less paranoid ideations, increased insight into his MH illness, and expressed desire to prioritize his MH therapy. On admission day #5, Family meeting held with patient, patient's mother, this provider and unit SW this afternoon. Patient noted to be engaged in the meeting, with full affect and spontaneous speech. Patient has decided it best to take this semester off to prioritize his MH treatment. Patient is amenable to returning home with his mom after discharge. He is amenable to starting a Partial hospitalization treatment program, as well as returning to his prior MH provider(Dr. Sheldon) and therapist in [place]. Patient reports improved mood since admission. He reports no further muscle rigidity or stiffness since initiation of Cogentin 1mg po BID. Patient reports ongoing constipation which has not been alleviated by Colace 100mg po daily. Patient amenable to 1x MagCitrate for constipation. Mom reports she'd like to talk with Dr. Sheldon in regard to his Adderall Rx and in regard to initiating the BENAVIDES Abilify Maintena. Patient reports fair sleep and appetite. He again denies SI/ HI and AH/VH. He reports feeling ready for discharge. Tentative discharge scheduled for 11am tomorrow. On day of discharte, patient again noted to be visible in the milieu, social with peers. He was playing cards with multiple peers on my approach. Patient is more full in affect and even more engaged today in conversation. Patient more logical in TP and noted to have full affect. Patient denied SI/HI and AH/VH. Patient is A&Ox4, linear and GD in TP, and future oriented in TC. Patient engaged in learning how to cope with his anxiety and inclination to perceive malice. Patient reports interest in getting back into school after his semester off. Patient is psychiatrically stable. Discharge plan has been discussed and patient is amenable and acknowledges understanding. Patient instructed to call the crisis hotline, 911, or self present to a local ED if SI recurs. Patient was amenable and acknowledged understanding of family and community supports. Patient will be discharge home with his mother who has come to pick him up. PERTINENT LABS: Laboratory Tests 11/02/16 11/02/16 11/02/16 16:10 16:28 16:28 WBC 4.8 RBC 4.76 Hgb 14.6 Hct 44 MCV 92 MCH 31 MCHC 34 RDW 14 Plt Count 240 MPV 9 Neut % (Auto) 70.4 Lymph % (Auto) 22.6 L [place] % (Auto) 5.6 Eos % (Auto) 0.8 Baso % (Auto) 0.6 Absolute Neuts (auto) 3.4 Absolute Lymphs (auto) 1.1 Absolute Monos (auto) 0.3 Absolute Eos (auto) 0 Absolute Basos (auto) 0 Absolute Nucleated RBC 0 Nucleated RBC % 0 Sodium 137 Potassium 3.9 Chloride 103 Carbon Dioxide 28 Anion Gap 6 BUN 11 Creatinine 1.06 Est GFR ( Amer) 114.5 Est GFR (Non-Af Amer) 89.1 BUN/Creatinine Ratio 10.4 Glucose 100 Calcium 9.7 Total Bilirubin 0.80 AST 22 ALT 9 Alkaline Phosphatase 77 Total Protein 7.4 Albumin 4.7 Globulin 2.7 Albumin/Globulin Ratio 1.7 TSH 1.44 Salicylates < 2.50 Urine Opiates Screen None detected Acetaminophen < 15 Ur Barbiturates Screen None detected Ur Phencyclidine Scrn None detected Ur Amphetamines Screen Presumptive positive H U Benzodiazepines Scrn None detected Urine Cocaine Screen None detected U Cannabinoids Screen Presumptive positive H Serum Alcohol < 10 Consultants: none Discharge Meds: Home Medications Medication Instructions Recorded Confirmed Type Amphetamine MIXED SALT TAB* 20 mg PO DAILY 11/02/16 11/02/16 History [Adderall TAB*] ARIPiprazole TAB* [Abilify 20 MG 20 mg PO BEDTIME #30 tab 11/11/16 Rx TAB*] Benztropine TAB* [Cogentin TAB*] 1 mg PO BID #60 tab 11/11/16 Rx Docusate CAP* [Colace Cap*] 100 mg PO DAILY #30 cap 11/11/16 Rx Venlafaxine EXT RELEASE CAP* 225 mg PO DAILY #30 cap.sr 11/11/16 Rx [Effexor Xr CAP*] Follow-Up: Appt. for within the next 2 weeks scheduled by SW and mom with previous MH providers at home in [place], [place] Clear for Discharge: Adequate Clinical Respons, Acceptable Safety Profile Inpatient DSM-IV Dx: ASSESSMENT: . 1. MDD, R, S w/ PFs(paranoia ) vs Bipolar depression w/PFs(paranoia). 2. ADHD Discharge Planning - Discharge Planning Discharge Plan: Outpatient Follow Up - Patient returning home to [place], [place] and will re-start with prior MH providers. Recommendations for Continuing Care: Psychotherapy, Primary Care Followup Medications: Current Medications Acetaminophen (Tylenol Tab*) 650 mg PO Q4H PRN PRN Reason: for pain; or Temp >101 F Al Hydrox/Mg Hydrox/Simethicone (Maalox Plus*) 30 ml PO Q4H PRN PRN Reason: INDIGESTION Aripiprazole (Abilify Tab*) 20 mg PO BEDTIME [facility] Last Admin: 11/10/16 20:13 Dose: 20 mg Benztropine Mesylate (Cogentin Tab*) 1 mg PO BID [facility] Last Admin: 11/11/16 08:22 Dose: 1 mg Docusate Sodium (Colace Cap*) 100 mg PO DAILY [facility] Last Admin: 11/11/16 08:22 Dose: 100 mg Haloperidol (Haldol Tab*) 5 mg PO Q6H PRN PRN Reason: AGITATION/ANXIETY/INSOMNIA Hydroxyzine HCl (Atarax Tab*) 50 mg PO Q6H PRN PRN Reason: AGITATION/ANXIETY/INSOMNIA Nicotine (Nicotine Inhaler*) 10 mg INH Q2H PRN PRN Reason: CRAVING Last Admin: 11/10/16 18:21 Dose: 10 mg Nicotine Polacrilex (Nicotine Gum*) 2 mg PO Q2H PRN PRN Reason: CRAVING Venlafaxine HCl (Effexor Xr Cap*) 225 mg PO DAILY [facility] Last Admin: 11/11/16 08:22 Dose: 225 mg Discharge Planning: Prescriptions provided for discharge [x] Yes [] No Follow up care details as per social work arrangements. Patient response to discharge plan: [] eager for discharge [x] agreeable with discharge plan [] ambivalent about discharge [] disagrees with discharge today
== END 2016-11-11 11:15 | disposition home or self-care (01) | DRG 753 ==
LOC: ED 15:22 → BSU 11-03 17:07
PROVIDERS: ADMIT Psychiatry & Neurology Psychiatry; ATTEND Psychiatry & Neurology Psychiatry
DX: F31.5 Bipolar disorder, current episode depressed, severe, with psychotic features (principal); R45.851 Suicidal ideations; F90.9 Attention-deficit hyperactivity disorder, unspecified type; F40.10 Social phobia, unspecified; K59.00 Constipation, unspecified; R45.1 Restlessness and agitation; Z81.8 Family history of other mental and behavioral disorders; Z91.5 Personal history of self-harm
CPT/HCPCS: 36415; 80053; 80307; 80320; 80329; 84443; 85025; 99222; 99231; 99233; 99238; A9270-GY; G0480